=== PATIENT | male | born 1960 | race Caucasian/White ===

== ENCOUNTER 2017-07-08 22:27 | Inpatient (IN) | payer OTHER ==
[2017-07-08] VITALS (10 sets, daily range): BP systolic 166–250; BP diastolic 82–126; PULSE 73–86; RESP 24–32; TEMP 98.5; O2SAT 89–99
[~2017-07-08] VITALS: Ht 177.8 cm; Wt 107.9 kg
[2017-07-08] MEDS ORDERED: GEMF600T PO (22:48)
[2017-07-08] MEDS ORDERED: metoprolol (22:48)
--- NOTE | 2017-07-08 22:51 | PD ---
HPI Chief Complaint: Respiratory Distress Time Seen by Provider: 22:34 Travel History International Travel<30 days: No Contact w/Intl Traveler<30days: No Traveled to known affect area: No History of Present Illness HPI The patient is a 56 year old male who presents to the [facility] emergency department with a history of sudden onset of cough, shortness of breath that began when he laid down prior to arrival. The patient reports that he had similar symptoms a few months ago when he developed the flu. He reports that he was seen by his primary care physician regarding that. He reports that those symptoms seem to resolve on their own. The patient reports that the shortness of breath seem to get worse even though he sat up. He reports that he had a gurgling sound in his chest. Upon ambulance services arrival the patient was noted to have room air saturations of 88%. The patient was placed on 2 L nasal cannula O2. The patient's primary care physician is Dr. Alcala. He denies having a director custom locally, however in 2005 he did have a myocardial infarction with a stent placed in the circumflex. He reports that he has not had a stress test done that he can recall since 2011. He reports that he has been taking his medications on a regular basis. He is on low-dose aspirin daily. He denies having any prior history of congestive heart failure, DVT, or PE. On review of systems otherwise, the patient denies having any recent fevers, neck pain, chest pain, lower extremity edema, calf pain, lower extremity erythema, abdominal pain, vomiting, diarrhea, urinary symptoms, or neurologic symptoms. [facility] Past Medical History Narrative Medical The patient's past medical history is significant for myocardial infarction in 2006 status post stent placement, history of hyperlipidemia, diabetes mellitus, hypertension Diabetes: Yes Patient Takes Glucophage: No Hypertension: Yes Immunizations Current: Yes Myocardial Infarction: Yes Triglycerides - High: Yes Tetanus Vaccination: Unknown Influenza Vaccination: No Past Surgical History Narrative Surgical The patient's past surgical history is significant for tonsillectomy and uvulectomy. Coronary Stent: Yes (2005) Social History Alcohol Use: Yes ([facility]) Tobacco Use: No (Reportedly quit smoking in 2008) Substance Use: No Allergies-Medications (Allergen,Severity, Reaction): Coded Allergies: No Known Allergies (Unverified , 07/08/17) Reported Meds & Prescriptions Reported Meds & Active Scripts Active Reported Tresiba Flextouch Pen Inj (Insulin Degludec Inj) 300 unit/3 ML Pen 200 Units SQ HS Aspirin Low Dose (Aspirin) 81 Mg Chew 81 Mg PO DAILY Metformin (Metformin HCl) 500 Mg Tab 500 Mg PO BIDPC Atorvastatin (Atorvastatin Calcium) 40 Mg Tab 40 Mg PO HS Amlodipine-Benazepril 10-20 Mg Cap 1 Cap DAILY Gemfibrozil 600 Mg Tab 600 Mg PO BIDAC Take 30 minutes prior to breakfast and dinner. [metoprolol] Review of Systems Except as stated in HPI: all other systems reviewed are Neg General / Constitutional: No: Fever Eyes: No: Visual changes HENT: No: Headaches Cardiovascular: Positive: Dyspnea on exertion, No: Chest Pain or Discomfort Respiratory: Positive: Cough, Shortness of Breath, Orthopnea Gastrointestinal: No: Abdominal Pain Genitourinary: No: Dysuria Musculoskeletal: No: Pain Skin: No Rash Neurologic: No: Weakness Psychiatric: No: Depression Endocrine: No: Polydipsia Hematologic/Lymphatic: No: Easy Bruising Physical Exam Narrative General: The patient is a well-developed well-nourished male, short of breath on arrival with diaphoresis. Head and Neck exam: Head is normocephalic atraumatic. Eyes: EOMI, pupils are equal round and reactive to light. Nose: Midline septum with pink mucous membranes Mouth: Dentition unremarkable. Moist mucus membranes. Posterior oropharynx is not erythematous. No tonsillar hypertrophy. No uvula as the patient is status post uvulectomy. Airway patent. Neck: No palpable lymphadenopathy. No nuchal rigidity. No thyromegaly. Cardiovascular: Regular rate and rhythm without murmurs, gallops, or rubs. No pulse deficit to the extremities on simultaneous auscultation and palpation of his radial artery. Lungs: Crackles audible in bilateral lung bases, no wheezes, no rhonchi. The patient is tachypneic with conversational dyspnea. Abdomen: Soft, without tenderness to palpation in all 4 quadrants of the abdomen. No guarding, rebound, or rigidity. Normal bowel sounds are audible. No tenderness on palpation of McBurney's point. Extremities: No clubbing or cyanosis. The patient has trace pedal edema bilateral lower extremities. 2+ pulses in all 4 extremities. No calf tenderness on palpation. Back: No spinous process tenderness to palpation. No costovertebral angle tenderness to palpation. Neurologic Exam: Grossly nonfocal. Skin Exam: No rash noted. Intact skin that is warm and diaphoretic. Data Data Last Documented VS Vital Signs Date Time Temp Pulse Resp B/P (MAP) Pulse Ox O2 Delivery O2 Flow Rate FiO2 07/09/17 01:02 72 22 148/75 (99) 99 Nasal Cannula 3.00 07/08/17 23:43 30 07/08/17 22:36 98.5 Orders Orders Complete Blood Count With Diff (07/08/17 22:46) Comprehensive Metabolic Panel (07/08/17 22:46) B-Type Natriuretic Peptide (07/08/17 22:46) Act Partial Throm Time (Ptt) (07/08/17 22:46) Prothrombin Time / Inr (Pt) (07/08/17 22:46) Magnesium (Mg) (07/08/17 22:46) Ckmb (Isoenzyme) Profile (07/08/17 22:46) Troponin I (07/08/17 22:46) Arterial Blood Gas (Abg) (07/08/17 22:46) Urinalysis - C+S If Indicated (07/08/17 22:46) Iv Access Insert/Monitor (07/08/17 22:46) Electrocardiogram (07/08/17 22:46) Ecg Monitoring (07/08/17 22:46) Oximetry (07/08/17 22:46) Oxygen Administration (07/08/17 22:46) Chest, Single Ap (07/08/17 22:46) Urinary Catheter Insert/Apply (07/08/17 22:46) Sodium Chloride 0.9% Flush (Ns Flush) (07/08/17 23:00) Resp Bipap / Cpap Non Invas Vt (07/08/17 22:46) Nitroglycerin-D5w 50 Mg/250 Ml (Nitrogly (07/08/17 23:00) CKMB (07/08/17 22:55) CKMB% (07/08/17 22:55) Furosemide Inj (Lasix Inj) (07/09/17 00:00) Aspirin Chew (Aspirin Chew) (07/09/17 00:00) Admit Order (Ed Use Only) (07/09/17 01:08) Labs Laboratory Tests Test 4/1/18 22:55 07/08/17 23:40 07/09/17 00:45 White Blood Count 6.6 TH/MM3 Red Blood Count 5.74 MIL/MM3 Hemoglobin 15.7 GM/DL Hematocrit 47.8 % Mean Corpuscular Volume 83.2 FL Mean Corpuscular Hemoglobin 27.3 PG Mean Corpuscular Hemoglobin Concent 32.9 % Red Cell Distribution Width 15.0 % Platelet Count 173 TH/MM3 Mean Platelet Volume 9.8 FL Neutrophils (%) (Auto) 55.3 % Lymphocytes (%) (Auto) 30.2 % Monocytes (%) (Auto) 11.1 % Eosinophils (%) (Auto) 2.1 % Basophils (%) (Auto) 1.3 % Neutrophils # (Auto) 3.7 TH/MM3 Lymphocytes # (Auto) 2.0 TH/MM3 Monocytes # (Auto) 0.7 TH/MM3 Eosinophils # (Auto) 0.1 TH/MM3 Basophils # (Auto) 0.1 TH/MM3 CBC Comment DIFF FINAL Differential Comment Prothrombin Time 10.5 SEC Prothromb Time International Ratio 1.0 RATIO Activated Partial Thromboplast Time 23.4 SEC Blood Urea Nitrogen 21 MG/DL Creatinine 1.25 MG/DL Random Glucose 301 MG/DL Total Protein 6.9 GM/DL Albumin 3.4 GM/DL Calcium Level 8.6 MG/DL Magnesium Level 2.1 MG/DL Alkaline Phosphatase 108 U/L Aspartate Amino Transf (AST/SGOT) 56 U/L Alanine Aminotransferase (ALT/SGPT) 57 U/L Total Bilirubin 0.4 MG/DL Sodium Level 142 MEQ/L Potassium Level 4.1 MEQ/L Chloride Level 108 MEQ/L Carbon Dioxide Level 24.9 MEQ/L Anion Gap 9 MEQ/L Estimat Glomerular Filtration Rate 60 ML/MIN Total Creatine Kinase 111 U/L Creatine Kinase MB 2.4 NG/ML Troponin I LESS THAN 0.02 NG/ML B-Type Natriuretic Peptide 326 PG/ML Blood Gas Puncture Site RT RADIAL Blood Gas Patient Temperature 98.6 Blood Gas HCO3 24 mmol/L Blood Gas Base Excess -0.8 mmol/L Blood Gas Oxygen Saturation 93 % Arterial Blood pH 7.39 Arterial Blood Partial Pressure CO2 40 mmHg Arterial Blood Partial Pressure O2 76 mmHG Arterial Blood Oxygen Content 19.8 Vol % Arterial Blood Carboxyhemoglobin 1.3 % Arterial Blood Methemoglobin 0.8 % Blood Gas Hemoglobin 15.0 G/DL Oxygen Delivery Device BIPAP Blood Gas Ventilator Setting IPAP=10 EPAP=5 Blood Gas Inspired Oxygen 30 % Urine Color LIGHT-YELLOW Urine Turbidity CLEAR Urine pH 5.0 Urine Specific [place] 1.016 Urine Protein 30 mg/dL Urine Glucose (UA) 1000 mg/dL Urine Ketones NEG mg/dL Urine Occult Blood NEG Urine Nitrite NEG Urine Bilirubin NEG Urine Urobilinogen LESS THAN 2.0 MG/DL Urine Leukocyte Esterase NEG Urine RBC LESS THAN 1 /hpf Urine WBC 1 /hpf Microscopic Urinalysis Comment CULT NOT INDICATED MDM Medical Decision Making Medical Screen Exam Complete: Yes Emergency Medical Condition: Yes Medical Record Reviewed: Yes Interpretation(s) Last Impressions Chest X-Ray 07/08/176 Signed Impressions: Service Date/Time: Saturday, July 08, 2017 23:16 - CONCLUSION: Mild CHF Diaz Rudolph MD Differential Diagnosis Hypertensive emergency as the patient has a blood pressure on arrival of 250/126 , versus acute coronary syndrome, versus congestive heart failure exacerbation, versus pneumonia, versus pulmonary embolism Narrative Course During the course of the patient's emergency department visit, the patient's history, examination, and differential diagnosis were reviewed with the patient. The patient was placed on a child monitor with oximetry and frequent blood pressure monitoring. The patient had IV access obtained and blood work sent for analysis. The patient had an EKG done on arrival that shows a sinus rhythm heart rate of 81, QRS duration is 120 ms with a left anterior fascicular block noted, QTC is 420 ms, no acute ST segment elevation is noted. The patient was immediately placed on BiPAP due to respiratory distress. The patient was initially provided aspirin 324 mg p.o. 1. Nitroglycerin drip was started immediately to lower his afterload. The patient's laboratory studies were reviewed and remarkable for A white count of 6.6, hemoglobin 15.7, platelets 173 with 11.1 monocytes, CMP is remarkable for chloride of 108, BUN 21, glucose 301, AST 56, initial set of cardiac enzymes within normal limits, BNP elevated at 326 consistent with congestive heart failure. PT 10.5, PTT 23.4. Urinalysis shows 30 protein glucose 1000. Blood gas on BiPAP reveals a pH of 7.39, PCO2 40, PO2 76, bicarb 24. The patient's BiPAP will be weaned as tolerated. The patient's blood pressure improved on nitroglycerin drip. The goal was to get the patient's blood pressure down to a systolic of less than or equal to 180. The patient's respiratory and distress improved. The patient was diuresed with Lasix and a Farmer catheter was placed to gravity. Radiology studies were reviewed and remarkable for a chest x-ray that showed pulmonary edema consistent with congestive heart failure. The patient's results were discussed with the patient, including the plan of care. I explained that further testing and/ or monitoring is indicated based on the patient's history, examination, and/ or laboratory findings. Therefore, I recommended admission for additional evaluation. The patient expressed understanding and was agreeable with this plan. The patient was admitted to the hospital in guarded condition and sent to a bed under the care of the [facility] service. Critical Care Narrative Aggregate critical care time was 34 minutes. Time to perform other separately billable procedures was not included in the critical care time. My time did not include minutes spent treating any other patients simultaneously or on activities that did not directly contribute to the patient's treatment. The services I provided to this patient were to treat and/or prevent clinically significant deterioration that could result in: Respiratory failure requiring endotracheal intubation, versus cardiac arrhythmia, versus cardiopulmonary arrest I provided critical care services requiring my management, as noted below: Chart data review, documentation time, medication orders and management, vital sign assessments/reviewing monitor data, ordering and reviewing lab tests, ordering and interpreting/reviewing x-rays and diagnostic studies, care of the patient and discussion of the patient with the admitting physicians. Physician Communication Physician Communication The patient's case including history, pertinent physical examination findings, and laboratory studies were discussed with Dr. Foster. It was agreed that the patient would be admitted to the [facility] service. Diagnosis Primary Impression: New onset of congestive heart failure Additional Impression: Hypertensive emergency Admitting Information Admitting Physician Requests: Admit Xi Leon MD Jul 08, 2017 22:51
[2017-07-08] MEDS ORDERED: NITROGLYCERIN-D5W 50 MG/250 ML 250 ML IV PRN (23:00)
[2017-07-08] MEDS ORDERED: SODIUM CHLORIDE 0.9% FLUSH 10 ML FLUSH IVF PRN (23:00)
[2017-07-08 23:04] LABS: AUTOMATED NEUTROPHIL # 3.7 TH/MM3 (1.8-7.7); BASOPHIL # 0.1 TH/MM3 (0-0.2); BASOPHIL % 1.3 % (0.0-2.0); EOSINOPHIL # 0.1 TH/MM3 (0-0.4); EOSINOPHIL % 2.1 % (0.0-4.0); HEMATOCRIT 47.8 % (39.0-51.0); HEMOGLOBIN 15.7 GM/DL (13.0-17.0); LYMPH % 30.2 % (9.0-44.0); MEAN CELL VOLUME 83.2 FL (80.0-100.0); MEAN CORPUSCULAR HEMOGLOBIN 27.3 PG (27.0-34.0); MEAN CORPUSCULAR HGB CONC 32.9 % (32.0-36.0); MEAN PLATELET VOLUME 9.8 FL (7.0-11.0); MONO % 11.1 % (0.0-8.0); MONOCYTE # 0.7 TH/MM3 (0-0.9); NEUT % 55.3 % (16.0-70.0); PLATELET COUNT 173 TH/MM3 (150-450); RED BLOOD COUNT 5.74 MIL/MM3 (4.50-5.90); WHITE BLOOD COUNT 6.6 TH/MM3 (4.0-11.0)
[2017-07-08 23:14] LABS: PROTHROMBIN TIME - PATIENT 10.5 SEC (9.8-11.6)
--- NOTE | 2017-07-08 23:33 | RADRPT ---
EXAM DATE/TIME: 07/08/2017 23:16 [place] COMPARISON: No previous studies available for comparison. INDICATIONS : Short of breath. MEDICAL HISTORY : None. SURGICAL HISTORY : None. ENCOUNTER: Initial ACUITY: 1 day PAIN SCORE: 0/10 LOCATION: Bilateral chest FINDINGS: Cardiac silhouette is enlarged. There is mild vascular congestion and interstitial prominence. CONCLUSION: Mild CHF Diaz Rudolph MD on July 08, 2017 at 23:25 Board Certified Radiologist. This report was verified electronically.
[2017-07-08 23:50] LABS: ALBUMIN 3.4 GM/DL (3.4-5.0); ALKALINE PHOSPHATASE 108 U/L (45-117); AST (GOT) 56 U/L (15-37); BICARBONATE 24.9 MEQ/L (21.0-32.0); BLOOD UREA NITROGEN 21 MG/DL (7-18); CALCIUM 8.6 MG/DL (8.5-10.1); CHLORIDE 108 MEQ/L (98-107); CREATININE 1.25 MG/DL (0.60-1.30); GLOMERULAR FILTRATION RATE 60 ML/MIN (>89); GLUCOSE,RANDOM 301 MG/DL (74-106); MAGNESIUM 2.1 MG/DL (1.5-2.5); SODIUM (NA) 142 MEQ/L (136-145); TOTAL BILIRUBIN ADULT 0.4 MG/DL (0.2-1.0); TOTAL PROTEIN 6.9 GM/DL (6.4-8.2); TROPONIN I LESS THAN 0.02 NG/ML (0.02-0.05)
[2017-07-09] VITALS (28 sets, daily range): BP systolic 120–178; BP diastolic 72–99; PULSE 60–138; RESP 18–22; TEMP 98.1–98.7; O2SAT 94–100
[2017-07-09] MEDS ORDERED: FUROSEMIDE 100 MG/10 ML VIAL IV PUSH ONE
[2017-07-09] MEDS ORDERED: ASPIRIN 81 MG CHEW TAB CHEW ONE
[2017-07-09 00:21] LABS: ALT (GPT) 57 U/L (12-78)
[2017-07-09 01:21] LABS: BILIRUBIN, URINE NEG (NEG); BLOOD, URINE NEG (NEG); GLUCOSE,URINE 1000 mg/dL (NEG); KETONE, URINE NEG (NEG); NITRITE,URINE NEG (NEG); URINE COLOR LIGHT-YELLOW (YELLW/STRAW); URINE LEUKOCYTE ESTERASE NEG (NEG)
[2017-07-09] MEDS ORDERED: BISACODYL 10 MG SUPP RECTAL PRN (01:45)
[2017-07-09] MEDS ORDERED: NALOXONE HCL 0.4 MG/ML AMP IV PUSH PRN (01:45)
[2017-07-09] MEDS ORDERED: MAGNESIUM HYDROXIDE SUSP 30 ML CUP PO PRN (01:45)
[2017-07-09] MEDS ORDERED: LACTULOSE SYRUP 20 GM/30 ML CUP PO PRN (01:45)
[2017-07-09] MEDS ORDERED: SENNOSIDES 8.6 MG TAB PO PRN (01:45)
[2017-07-09] MEDS ORDERED: SODIUM CHLORIDE 0.9% FLUSH 10 ML FLUSH IV FLUSH PRN (01:45)
[2017-07-09] MEDS ORDERED: ONDANSETRON HCL 4 MG/2 ML VIAL IVP PRN (01:45)
[2017-07-09] MEDS ORDERED: GLUCAGON 1 MG/ML VIAL OTHER PRN ×2 (02:00→12:45)
[2017-07-09] MEDS ORDERED: DEXTROSE 50% IN WATER 50 ML VIAL(D50) IV PUSH PRN ×2 (02:00→12:45)
--- NOTE | 2017-07-09 02:03 | HHI.HP ---
HPI Service [facility] Primary Care Physician Unknown Admission Diagnosis New onset CHF, hypertensive emergency Diagnoses: Travel History International Travel<30 Days: No Contact w/Intl Traveler <30 Da: No Traveled to Known Affected Are: No History of Present Illness 56-year-old male with a past medical history significant for CAD status post [place] , hypertension, hyperlipidemia and insulin-dependent diabetes mellitus presents to the emergency department for evaluation of sudden onset shortness of breath. Patient reports he had a headache all day and was lying down after dinner this evening when he had sudden onset shortness of breath that felt as though "he couldn't get a full breath." Was called and the patient became increasingly pale and diaphoretic according to his . The patient states he did not have any chest pain or abdominal pain that accompanied his symptoms. He denies any nausea/vomiting/diarrhea. No fever/chills or cough. No lateralizing signs/symptoms. On arrival to the ED, the patient was in HTN crisis with a BP of 250/126. Review of Systems Except as stated in HPI: all other systems reviewed are Neg Past Family Social History Past Medical History Coronary artery disease status post [place] in 2005 Hypertension Hyperlipidemia Diabetes mellitus Past Surgical History Cardiac catheterization with stent 1 Tonsillectomy Reported Medications Reported Meds & Active Scripts Active Reported Gemfibrozil 600 Mg Tab 600 Mg PO BIDAC Take 30 minutes prior to breakfast and dinner. [metoprolol] Allergies: Coded Allergies: No Known Allergies (Unverified , 07/08/17) Family History Both parents with coronary artery disease and diabetes mellitus Social History Occasional alcohol. Occasional cigars. Denies illicit drugs. Physical Exam Vital Signs Vital Signs Date Time Temp Pulse Resp B/P (MAP) Pulse Ox O2 Delivery O2 Flow Rate FiO2 07/09/17 01:19 153/74 (100) 07/09/17 01:02 72 22 148/75 (99) 99 Nasal Cannula 3.00 07/09/17 00:53 22 99 Nasal Cannula 3.00 07/09/17 00:45 100 Nasal Cannula 3.00 07/09/17 00:32 73 154/76 (102) 07/09/17 00:05 74 171/87 (115) 07/08/17 23:54 73 166/82 (110) 07/08/17 23:43 24 96 BiPAP 30 07/08/17 23:41 77 176/92 (120) 07/08/17 23:35 78 184/89 (120) 07/08/17 23:26 82 198/98 (131) 07/08/17 23:18 205/107 (139) 07/08/17 23:08 95 BiPAP 07/08/17 23:07 76 213/101 07/08/17 22:55 94 Nasal Cannula 2.00 07/08/17 22:55 32 07/08/17 22:55 99 30 07/08/17 22:43 94 Nasal Cannula 2.00 07/08/17 22:36 98.5 86 32 250/126 (167) 89 Physical Exam GENERAL: Obese, male sitting up in bed SKIN: No rashes, ecchymoses or lesions. Cool and dry. HEAD: Atraumatic. Normocephalic. No temporal or scalp tenderness. EYES: Pupils equal round and reactive. Extraocular motions intact. No scleral icterus. No injection or drainage. ENT: Nose without bleeding, purulent drainage or septal hematoma. Throat without erythema, tonsillar hypertrophy or exudate. Uvula midline. Airway patent. NECK: Trachea midline. No JVD or lymphadenopathy. Supple, nontender, no meningeal signs. CARDIOVASCULAR: Regular rate and rhythm without murmurs, gallops, or rubs. RESPIRATORY: Clear to auscultation. Breath sounds equal bilaterally. No wheezes , rales, or rhonchi. GASTROINTESTINAL: Abdomen soft, non-tender, nondistended. No hepato-splenomegaly , or palpable masses. No guarding. MUSCULOSKELETAL: Extremities without clubbing, cyanosis, or edema. No joint tenderness, effusion, or edema noted. No calf tenderness. NEUROLOGICAL: Awake and alert. Cranial nerves II through XII intact. Motor and sensory grossly within normal limits. Normal speech. Laboratory Laboratory Tests Test 07/08/17 22:55 07/08/17 23:40 07/09/17 00:45 White Blood Count 6.6 Red Blood Count 5.74 Hemoglobin 15.7 Hematocrit 47.8 Mean Corpuscular Volume 83.2 Mean Corpuscular Hemoglobin 27.3 Mean Corpuscular Hemoglobin Concent 32.9 Red Cell Distribution Width 15.0 Platelet Count 173 Mean Platelet Volume 9.8 Neutrophils (%) (Auto) 55.3 Lymphocytes (%) (Auto) 30.2 Monocytes (%) (Auto) 11.1 Eosinophils (%) (Auto) 2.1 Basophils (%) (Auto) 1.3 Neutrophils # (Auto) 3.7 Lymphocytes # (Auto) 2.0 Monocytes # (Auto) 0.7 Eosinophils # (Auto) 0.1 Basophils # (Auto) 0.1 CBC Comment DIFF FINAL Differential Comment Prothrombin Time 10.5 Prothromb Time International Ratio 1.0 Activated Partial Thromboplast Time 23.4 Blood Urea Nitrogen 21 Creatinine 1.25 Random Glucose 301 Total Protein 6.9 Albumin 3.4 Calcium Level 8.6 Magnesium Level 2.1 Alkaline Phosphatase 108 Aspartate Amino Transf (AST/SGOT) 56 Alanine Aminotransferase (ALT/SGPT) 57 Total Bilirubin 0.4 Sodium Level 142 Potassium Level 4.1 Chloride Level 108 Carbon Dioxide Level 24.9 Anion Gap 9 Estimat Glomerular Filtration Rate 60 Total Creatine Kinase 111 Creatine Kinase MB 2.4 Troponin I LESS THAN 0.02 B-Type Natriuretic Peptide 326 Blood Gas Puncture Site RT RADIAL Blood Gas Patient Temperature 98.6 Blood Gas HCO3 24 Blood Gas Base Excess -0.8 Blood Gas Oxygen Saturation 93 Arterial Blood pH 7.39 Arterial Blood Partial Pressure CO2 40 Arterial Blood Partial Pressure O2 76 Arterial Blood Oxygen Content 19.8 Arterial Blood Carboxyhemoglobin 1.3 Arterial Blood Methemoglobin 0.8 Blood Gas Hemoglobin 15.0 Oxygen Delivery Device BIPAP Blood Gas Ventilator Setting IPAP=10 EPAP=5 Blood Gas Inspired Oxygen 30 Urine Color LIGHT-YELLOW Urine Turbidity CLEAR Urine pH 5.0 Urine Specific [place] 1.016 Urine Protein 30 Urine Glucose (UA) 1000 Urine Ketones NEG Urine Occult Blood NEG Urine Nitrite NEG Urine Bilirubin NEG Urine Urobilinogen LESS THAN 2.0 Urine Leukocyte Esterase NEG Urine RBC LESS THAN 1 Urine WBC 1 Microscopic Urinalysis Comment CULT NOT INDICATED Result Diagram: 07/08/17225407/08/172254 Caprini VTE Risk Assessment Caprini VTE Risk Assessment: No/Low Risk (score <= 1) Caprini Risk Assessment Model Point Value = 1 Point Value = 2 Point Value = 3 Point Value = 5 Age 41-60 Minor surgery BMI > 25 kg/m2 Swollen legs Varicose veins or History of unexplained or recurrent spontaneous Oral contraceptives or hormone replacement Sepsis (< 1 month) Serious lung disease, including pneumonia (< 1 month) Abnormal pulmonary function Acute myocardial infarction Congestive heart failure (< 1 month) History of inflammatory bowel disease Medical patient at bed rest Age 61-74 Arthroscopic surgery Major open surgery (> 45 min) Laparoscopic surgery (> 45 min) Malignancy Confined to bed (> 72 hours) Immobilizing plaster cast Central venous access Age >= 75 History of VTE Family history of VTE Factor V Leiden Prothrombin [id number] Lupus anticoagulant Anticardiolipin antibodies Elevated serum homocysteine Heparin-induced thrombocytopenia Other congenital or acquired thrombophilia Stroke (< 1 month) Elective arthroplasty Hip, pelvis, or leg fracture Acute spinal cord injury (< 1 month) Prophylaxis Regimen Total Risk Factor Score Risk Level Prophylaxis Regimen 0-1 Low Early ambulation 2 Moderate Order ONE of the following: *Sequential Compression Device (SCD) *Heparin 5000 units SQ BID 3-4 Higher Order ONE of the following medications: *Heparin 5000 units SQ TID *Enoxaparin/Lovenox 40 mg SQ daily (WT < 150 kg, CrCl > 30 mL/min) *Enoxaparin/Lovenox 30 mg SQ daily (WT < 150 kg, CrCl > 10-29 mL/min) *Enoxaparin/Lovenox 30 mg SQ BID (WT < 150 kg, CrCl > 30 mL/min) AND/OR *Sequential Compression Device (SCD) 5 or more Highest Order ONE of the following medications: *Heparin 5000 units SQ TID (Preferred with Epidurals) *Enoxaparin/Lovenox 40 mg SQ daily (WT < 150 kg, CrCl > 30 mL/min) *Enoxaparin/Lovenox 30 mg SQ daily (WT < 150 kg, CrCl > 10-29 mL/min) *Enoxaparin/Lovenox 30 mg SQ BID (WT < 150 kg, CrCl > 30 mL/min) AND *Sequential Compression Device (SCD) Assessment and Plan Assessment and Plan Assessment/plan: 1. Hypertensive crisis Blood pressure on arrival to the emergency department was 250/126 Continue nitro drip - wean as tolerated Resume home antihypertensives once medication list reconciled 2. Shortness of breath Unclear etiology Chest x-ray significant for mild vascular congestion with cardiomegaly, personally reviewed BMP mildly elevated at 326 Patient with no known history of CHF Echo pending IV Lasix Supplemental oxygen as needed 3. 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 Diabetes mellitus Continue long-acting insulin once reconciled Sliding scale insulin Monitor blood glucose 5. Hypertension/hyperlipidemia Continue home medications FEN Heart healthy, diabetic diet Electrolytes: Monitor and replete when necessary Heparin Physician Certification 2 Midnight Certification Type: Admission for Inpatient Services Order for Inpatient Services The services are ordered in accordance with Medicare regulations or non- Medicare payer requirements, as applicable. In the case of services not specified as inpatient-only, they are appropriately provided as inpatient services in accordance with the 2-midnight benchmark. Estimated LOS (days): 2 2 days is the estimated time the patient will need to remain in the hospital, assuming treatment plan goals are met and no additional complications. Post-Hospital Plan: Not yet determined Sarah Foster MD Jul 09, 2017 02:03
[2017-07-09] MEDS: HEPARIN SODIUM - SQ 10,000 UNITS/ML VIAL SQ SCH ×3 (02:32→17:12)
[2017-07-09] MEDS: ACETAMINOPHEN 325 MG TAB PO PRN ×3 (03:03→11:45)
[2017-07-09 05:43] LABS: TROPONIN I LESS THAN 0.02 NG/ML (0.02-0.05)
[2017-07-09] MEDS ORDERED: MORPHINE SULFATE 2 MG/ML SYRINGE IV PUSH PRN (06:00)
[2017-07-09] MEDS ORDERED: MORPHINE SULFATE 4 MG/ML INJ IV PUSH PRN (06:00)
[2017-07-09] MEDS ORDERED: INSULIN ASPART SUPPLEMENTAL SCALE SQ SCH (08:00)
--- NOTE | 2017-07-09 08:20 | EKG ---
Date Performed: 07/09/2017 Time Performed: 04:55:32 PTAGE: 56 years EKG: Sinus rhythm Left axis deviation IV conduction defect Extensive T wave changes Abnormal ECG PREVIOUS TRACING : 07/08/2017 22.51 Compared to previous tracing, T wave changes now present DOCTOR: Mesha Abdalla Interpretating Date/Time 07/09/2017 08:19:50
--- NOTE | 2017-07-09 08:25 | EKG ---
Date Performed: 07/08/2017 Time Performed: 22:51:24 PTAGE: 56 years EKG: Sinus rhythm POSSIBLE LEFT ATRIAL ENLARGEMENT LEFT ANTERIOR FASCICULAR BLOCK NONSPECIFIC T-WAVE ABNORMALITY ABNOR MAL ECG PREVIOUS TRACING : 07/08/2017 22.35 DOCTOR: Mesha Abdalla Interpretating Date/Time 07/09/2017 08:25:07
[2017-07-09] MEDS: DOCUSATE SODIUM 50 MG/SENNA 8.6 MG TAB PO SCH ×2 (08:28→21:00)
[2017-07-09] MEDS: FUROSEMIDE 40 MG/4 ML VIAL IV PUSH SCH ×2 (08:28→17:13)
[2017-07-09] MEDS: SODIUM CHLORIDE 0.9% FLUSH 10 ML FLUSH IV FLUSH SCH ×2 (08:28→21:39)
[2017-07-09] MEDS: LISINOPRIL 10 MG TAB PO SCH (10:02)
[2017-07-09] MEDS: amLODIPine BESYLATE 5 MG TAB PO SCH (10:03)
[2017-07-09 12:36] LABS: TROPONIN I LESS THAN 0.02 NG/ML (0.02-0.05)
[2017-07-09] MEDS ORDERED: PLEASE DISCONTINUE PREVIOUS SUPPLEMENTAL SCALE INSULIN ORDERS ONE (12:45)
[2017-07-09] MEDS: MEDIUM DOSE INSULIN NOVOLOG SUPPLEMENTAL SCALE SQ SCH ×3 (13:10→22:29)
--- NOTE | 2017-07-09 13:21 | HHI.PR ---
Subjective Remarks Patient reports feeling extremely tired. He denies chest pain or shortness of breath. He reports compliance with his antihypertensives. He did say he ran out of Lotrel a couple of weeks ago but has been taking metoprolol and Norvasc. Objective Vitals Vital Signs Date Time Temp Pulse Resp B/P (MAP) Pulse Ox O2 Delivery O2 Flow Rate FiO2 07/09/17 12:00 98.6 67 18 140/93 (109) 94 07/09/17 10:47 83 155/91 07/09/17 10:04 79 165/89 07/09/17 09:00 167/88 07/09/17 08:30 98.5 75 18 178/99 (125) 94 07/09/17 08:00 164/96 07/09/17 07:00 178/93 07/09/17 06:10 63 163/101 07/09/17 05:35 66 170/88 07/09/17 04:08 98.7 70 20 169/91 (117) 96 07/09/17 03:50 169/91 07/09/17 03:40 81 07/09/17 03:40 177/101 07/09/17 03:19 72 20 171/85 (113) 97 Nasal Cannula 3.00 07/09/17 03:18 07/09/17 02:20 75 20 152/74 (100) 97 Nasal Cannula 3.00 07/09/17 01:45 76 146/72 (96) 07/09/17 01:19 153/74 (100) 07/09/17 01:02 72 22 148/75 (99) 99 Nasal Cannula 3.00 07/09/17 00:53 22 99 Nasal Cannula 3.00 07/09/17 00:45 100 Nasal Cannula 3.00 07/09/17 00:32 73 154/76 (102) 07/09/17 00:05 74 171/87 (115) 07/08/17 23:54 73 166/82 (110) 07/08/17 23:43 24 96 BiPAP 30 07/08/17 23:41 77 176/92 (120) 07/08/17 23:35 78 184/89 (120) 07/08/17 23:26 82 198/98 (131) 07/08/17 23:18 205/107 (139) 07/08/17 23:08 95 BiPAP 07/08/17 23:07 76 213/101 07/08/17 22:55 94 Nasal Cannula 2.00 07/08/17 22:55 94 Nasal Cannula 2.00 07/08/17 22:55 32 07/08/17 22:55 99 30 07/08/17 22:43 94 Nasal Cannula 2.00 07/08/17 22:36 98.5 86 32 250/126 (167) 89 I/O 07/08/17 07/08/17 07/08/17 07/09/17 07/09/17 07/09/17 07:00 15:00 23:00 07:00 15:00 23:00 Intake Total 240 ml Output Total 3925 ml Balance -3685 ml Intake Oral 240 ml Output Urine Total 3925 ml # Bowel Movements 0 Result Diagram: 07/08/17225407/08/172254 Objective Remarks GENERAL: This is a well-nourished, well-developed patient, in no apparent distress. CARDIOVASCULAR: Normal rate and regular rhythm without murmurs, gallops, or rubs. RESPIRATORY: Good respiratory efforts. Breath sounds equal and clear to auscultation bilaterally. GASTROINTESTINAL: Abdomen soft, non-tender, non-distended. Normal active bowel sounds MUSCULOSKELETAL: Extremities without cyanosis, or edema. NEURO: Alert & Oriented x4 to person, place, time, situation. Moves all ext x4 PSYCH: Appropriate mood and affect. A/P Assessment and Plan 56-year-old male admitted with: 1. Hypertensive emergency Blood pressure on arrival to the emergency department was 250/126. Chest x-ray with evidence of CHF. Continue nitro drip - wean as tolerated Start amlodipine, lisinopril. Wean off nitro drip as tolerated. 2. Shortness of breath secondary to above. Chest x-ray significant for mild vascular congestion with cardiomegaly, personally reviewed BMP mildly elevated at 326 Patient with no known history of CHF Echo pending Continue IV Lasix Supplemental oxygen as needed 3. 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 Diabetes mellitus Sliding scale insulin. Plan to resume long-acting Monitor blood glucose Adam Stanton MD Jul 09, 2017 13:21
[2017-07-09] MEDS ORDERED: ASPI81CH6 PO (13:25)
[2017-07-09] MEDS ORDERED: ATOR40TA16 PO (13:25)
[2017-07-09] MEDS ORDERED: METF500T PO (13:25)
[2017-07-09] MEDS ORDERED: ASPI-516 PO (13:25)
[2017-07-09] MEDS ORDERED: AMLO10CA (13:25)
[2017-07-09] MEDS ORDERED: INSU1INJ14 SQ (13:27)
[2017-07-09] MEDS ORDERED: METOPROLOL TARTRATE 25 MG TAB PO SCH (14:00)
[2017-07-09] MEDS ORDERED: METOPROLOL TARTRATE 5 MG/5 ML VIAL IV ONE (14:00)
[2017-07-09] MEDS ORDERED: METOPROLOL TARTRATE 5 MG/5 ML VIAL IV PUSH ONE (15:00)
[2017-07-09] MEDS: METOPROLOL TARTRATE 25 MG TAB PO SCH (21:39)
[2017-07-10] VITALS (13 sets, daily range): BP systolic 123–142; BP diastolic 81–88; PULSE 63–122; RESP 16–18; TEMP 97.5–98.5; O2SAT 95–97
[2017-07-10] MEDS: HEPARIN SODIUM - SQ 10,000 UNITS/ML VIAL SQ SCH ×2 (03:30→09:36)
[2017-07-10 06:52] LABS: AUTOMATED NEUTROPHIL # 4.9 TH/MM3 (1.8-7.7); BASOPHIL # 0.1 TH/MM3 (0-0.2); BASOPHIL % 1.1 % (0.0-2.0); EOSINOPHIL # 0.1 TH/MM3 (0-0.4); EOSINOPHIL % 1.7 % (0.0-4.0); HEMATOCRIT 49.9 % (39.0-51.0); HEMOGLOBIN 16.9 GM/DL (13.0-17.0); LYMPHOCYTE # 2.6 TH/MM3 (1.0-4.8); MEAN CELL VOLUME 82.1 FL (80.0-100.0); MEAN CORPUSCULAR HEMOGLOBIN 27.7 PG (27.0-34.0); MEAN CORPUSCULAR HGB CONC 33.8 % (32.0-36.0); MEAN PLATELET VOLUME 9.6 FL (7.0-11.0); MONO % 11.6 % (0.0-8.0); NEUT % 55.6 % (16.0-70.0); PLATELET COUNT 193 TH/MM3 (150-450); RED BLOOD COUNT 6.08 MIL/MM3 (4.50-5.90); RED CELL DISTRIBUTION WIDTH 14.9 % (11.6-17.2); WHITE BLOOD COUNT 8.8 TH/MM3 (4.0-11.0)
[2017-07-10 07:16] LABS: BICARBONATE 28.8 MEQ/L (21.0-32.0); CALCIUM 9.1 MG/DL (8.5-10.1); CREATININE 1.02 MG/DL (0.60-1.30)
--- NOTE | 2017-07-10 08:05 | MB ---
cc: Mesha Abdalla MD DATE: 07/09/2017 HISTORY OF PRESENT ILLNESS: Mr. Winters is a 56-year-old white male with a history of coronary artery disease, myocardial infarction in 2005, hypertension, dyslipidemia and diabetes mellitus. He developed shortness of breath and headache. After he laid down after dinner, he developed severe shortness of breath, became diaphoretic and pale. He did not have any chest pain or abdominal pain, nausea, or vomiting. He was brought to the emergency room, his blood pressure was 250/126. His blood pressure is now better controlled. He went into atrial fibrillation this morning with increased ventricular response. He has no previous history of atrial fibrillation. PAST MEDICAL HISTORY: Positive for coronary artery disease, myocardial infarction in 2005, hypertension, dyslipidemia, diabetes mellitus, cardiac catheterization and stent placement, tonsillectomy. No history of stroke. MEDICATIONS: Gemfibrozil. MEDICATIONS AT HOME: Include, gemfibrozil, atorvastatin, amlodipine, benazepril, aspirin, metformin, insulin, metoprolol. ALLERGIES: NONE. SOCIAL HISTORY: The patient does not smoke cigarettes. He smokes cigars occasionally. He drinks alcohol occasionally. He does not control his salt intake. He exercises 2-3 times a week. FAMILY HISTORY: Positive for heart disease. His father of myocardial infarction. REVIEW OF SYSTEMS: Otherwise negative. PHYSICAL EXAMINATION: VITAL SIGNS: Blood pressure 125/76, pulse 125 and irregular. HEENT: Negative 2+ carotid upstrokes, no bruits. LUNGS: Clear. HEART: Irregularly irregular, with no murmur or gallop. ABDOMEN: Soft. No bruits. EXTREMITIES: With mild edema, 1-2+ pulses. NEUROLOGIC: Grossly nonfocal. ECHOCARDIOGRAM: Was reviewed and showed normal sinus rhythm, left axis, left anterior fascicular block, nonspecific T-wave changes. Followup EKG showed atrial fibrillation with rapid ventricular response, left axis and left anterior fascicular block and nonspecific T-wave changes. LABORATORY DATA: Hemoglobin 15.7, potassium 4.1, creatinine 1.5. Troponin negative x 3. CK 111, 81 and 78, AST 56, ALT 57. BNP 326. DIAGNOSES: 1. Hypertensive emergency. 2. Paroxysmal atrial fibrillation with rapid ventricular response. 3. Coronary artery disease, history of myocardial infarction. 4. Diabetes mellitus. 5. Dyslipidemia. 6. Obesity. DISPOSITION: Mr. Winters will continue his current program. We will continue and titrate his antihypertensive medications. I recommend to increase metoprolol for blood pressure control and rate control. I recommend to start anticoagulation with a novel anticoagulant. He was counseled on low salt diet. He will be monitored on telemetry. I will follow him for cardiology during his hospitalization. I will also see him back for followup in our office after discharge. MD SY Ortega/FAM , 06:05 PM , 07:03 PM IVON
[2017-07-10] MEDS ORDERED: POTASSIUM CHLORIDE 10 MEQ CONTROLLED RELEASE TAB PO ONE (09:00)
[2017-07-10] MEDS: DOCUSATE SODIUM 50 MG/SENNA 8.6 MG TAB PO SCH (09:00)
[2017-07-10] MEDS: MEDIUM DOSE INSULIN NOVOLOG SUPPLEMENTAL SCALE SQ SCH ×2 (09:34→13:30)
[2017-07-10] MEDS: amLODIPine BESYLATE 5 MG TAB PO SCH (09:34)
[2017-07-10] MEDS: LISINOPRIL 10 MG TAB PO SCH (09:35)
[2017-07-10] MEDS: METOPROLOL TARTRATE 25 MG TAB PO SCH (09:36)
[2017-07-10] MEDS: SODIUM CHLORIDE 0.9% FLUSH 10 ML FLUSH IV FLUSH SCH (09:36)
[2017-07-10] MEDS: FUROSEMIDE 40 MG/4 ML VIAL IV PUSH SCH (09:37)
--- NOTE | 2017-07-10 11:43 | HHI.PR ---
Objective Vitals Vital Signs Date Time Temp Pulse Resp B/P (MAP) Pulse Ox O2 Delivery O2 Flow Rate FiO2 07/10/17 10:00 110 07/10/17 09:15 95 21 07/10/17 09:00 110 07/10/17 08:08 98.1 75 16 142/87 (105) 97 07/10/17 08:00 96 07/10/17 08:00 92 07/10/17 04:00 97.9 67 18 123/88 (100) 96 07/10/17 02:00 94 07/10/17 01:00 84 07/10/17 00:00 97.5 63 18 133/81 (98) 96 07/10/17 00:00 106 07/09/17 23:00 110 07/09/17 22:00 132 07/09/17 21:28 96 Nasal Cannula 1.00 07/09/17 21:00 110 07/09/17 20:00 108 07/09/17 20:00 98.1 95 21 120/76 (91) 94 07/09/17 17:00 108 07/09/17 16:34 121 07/09/17 15:00 124 07/09/17 14:54 130 125/76 07/09/17 14:00 130 07/09/17 13:00 130 07/09/17 12:45 18 07/09/17 12:00 138 07/09/17 12:00 98.6 67 18 140/93 (109) 94 07/09/17 11:45 141/94 I/O 07/09/17 07/09/17 07/09/17 07/10/17 07/10/17 07/10/17 07:00 15:00 23:00 07:00 15:00 23:00 Intake Total 240 ml 1000 ml 240 ml Output Total 3925 ml 2100 ml 1150 ml Balance -3685 ml -1100 ml -910 ml Intake Oral 240 ml 1000 ml 240 ml Output Urine Total 3925 ml 2100 ml 1150 ml # Voids 5 # Bowel Movements 0 1 Result Diagram: 07/10/17 0533 07/10/17 0533 Objective Remarks GENERAL: This is a well-nourished, well-developed patient, in no apparent distress. CARDIOVASCULAR: Normal rate and regular rhythm without murmurs, gallops, or rubs. RESPIRATORY: Good respiratory efforts. Breath sounds equal and clear to auscultation bilaterally. GASTROINTESTINAL: Abdomen soft, non-tender, non-distended. Normal active bowel sounds MUSCULOSKELETAL: Extremities without cyanosis, or edema. NEURO: Alert & Oriented x4 to person, place, time, situation. Moves all ext x4 PSYCH: Appropriate mood and affect. A/P Assessment and Plan 56-year-old male admitted with: 1. Hypertensive emergency Blood pressure on arrival to the emergency department was 250/126. Chest x-ray with evidence of CHF. Continue nitro drip - wean as tolerated Start amlodipine, lisinopril. Wean off nitro drip as tolerated. 2. Shortness of breath secondary to above. Chest x-ray significant for mild vascular congestion with cardiomegaly, personally reviewed BMP mildly elevated at 326 Patient with no known history of CHF Echo pending Continue IV Lasix Supplemental oxygen as needed 3. 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 Diabetes mellitus Sliding scale insulin. Plan to resume long-acting Monitor blood glucose Adam Stanton MD Jul 10, 2017 11:43
[2017-07-10] MEDS ORDERED: AMLO10CA PO (12:17)
[2017-07-10] MEDS ORDERED: FURO40TA PO (12:17)
[2017-07-10] MEDS ORDERED: METO50TA PO (12:17)
--- NOTE | 2017-07-10 12:18 | HHI.DCPOC ---
Discharge Care Plan Diagnosis: (1) Hypertensive emergency (2) Atrial fibrillation (3) Shortness of breath (4) Diabetes Goals to Promote Your Health * To prevent worsening of your condition and complications * To maintain your health at the optimal level Directions to Meet Your Goals Take your medications as prescribed Follow your dietary instruction Follow activity as directed Keep your appointments as scheduled Take your immunizations and boosters as scheduled If your symptoms worsen call your PCP, if no PCP go to Urgent Care Center or Emergency Room Smoking is Dangerous to Your Health. Avoid second hand smoke Call the 24-hour hour crisis hotline for domestic abuse at Adam Stanton MD Jul 10, 2017 12:18
--- NOTE | 2017-07-10 12:19 | HHI.DS ---
Discharge Summary Admission Date Jul 09, 2017 at 01:10 Admitting Diagnosis New onset CHF, hypertensive emergency Brief History - From Admission 56-year-old male with a past medical history significant for CAD status post NV , hypertension, hyperlipidemia and insulin-dependent diabetes mellitus presents to the emergency department for evaluation of sudden onset shortness of breath. Patient reports he had a headache all day and was lying down after dinner this evening when he had sudden onset shortness of breath that felt as though "he couldn't get a full breath." Was called and the patient became increasingly pale and diaphoretic according to his . The patient states he did not have any chest pain or abdominal pain that accompanied his symptoms. He denies any nausea/vomiting/diarrhea. No fever/chills or cough. No lateralizing signs/symptoms. On arrival to the ED, the patient was in HTN crisis with a BP of 250/126. CBC/BMP: 07/10/17 0533 07/10/17 0533 Significant Findings Laboratory Tests Test 07/08/17 22:55 07/08/17 23:40 07/09/17 00:45 07/09/17 04:50 Monocytes (%) (Auto) 11.1 % (0.0-8.0) Activated Partial Thromboplast Time 23.4 SEC (24.3-30.1) Blood Urea Nitrogen 21 MG/DL (7-18) Random Glucose 301 MG/DL (74-106) Aspartate Amino Transf (AST/SGOT) 56 U/L (15-37) Chloride Level 108 MEQ/L (98-107) Estimat Glomerular Filtration Rate 60 ML/MIN (>89) Troponin I LESS THAN 0.02 NG/ML LESS THAN 0.02 NG/ML B-Type Natriuretic Peptide 326 PG/ML (0-100) Urine Protein 30 mg/dL (NEG-TRACE) Urine Glucose (UA) 1000 mg/dL (NEG) Test 07/09/17 11:24 07/10/17 05:33 Troponin I LESS THAN 0.02 NG/ML Red Blood Count 6.08 MIL/MM3 (4.50-5.90) Monocytes (%) (Auto) 11.6 % (0.0-8.0) Monocytes # (Auto) 1.0 TH/MM3 (0-0.9) Random Glucose 220 MG/DL (74-106) Potassium Level 3.1 MEQ/L (3.5-5.1) Estimat Glomerular Filtration Rate 76 ML/MIN (>89) PE at Discharge GENERAL: This is a well-nourished, well-developed patient, in no apparent distress. CARDIOVASCULAR: Normal rate and regular rhythm without murmurs, gallops, or rubs. RESPIRATORY: Good respiratory efforts. Breath sounds equal and clear to auscultation bilaterally. GASTROINTESTINAL: Abdomen soft, non-tender, non-distended. Normal active bowel sounds MUSCULOSKELETAL: Extremities without cyanosis, or edema. NEURO: Alert & Oriented x4 to person, place, time, situation. Moves all ext x4 PSYCH: Appropriate mood and affect. Pt Condition on Discharge: Good Discharge Disposition: Discharge Home Discharge Instructions DIET: Follow Instructions for: Heart Healthy Diet Activities you can perform: Regular-No Restrictions Adam Stanton MD Jul 10, 2017 12:19
--- NOTE | 2017-07-10 15:36 | EKG ---
Date Performed: 07/09/2017 Time Performed: 12:36:28 PTAGE: 56 years EKG: Atrial fibrillation with rapid ventricular response. Left axis deviation IV conduction defe ct Inferior infarct - age undetermined Ant/septal and lateral T wave changes are nonspecific Abnormal ECG PREVIOUS TRACING 07/09/17 Atiral fibrillation is new since prior tracing. Clinical correlation i s recommended DOCTOR: Carlos Barrera Interpretating Date/Time 07/10/2017 15:35:29
--- NOTE | 2017-07-10 16:49 | EKG ---
Date Performed: 07/09/2017 Time Performed: 11:10:08 PTAGE: 56 years EKG: Sinus rhythm . Left axis deviation IV conduction defect Extensive T wave changes may be due to myocardial ischemia Since previous tracing, no significant change noted Abnormal ECG PREVIOUS TRACING : 07/09/2017 04.55 DOCTOR: Carlos Barrera Interpretating Date/Time 07/10/2017 16:45:55
--- NOTE | 2017-07-10 17:28 | ECHRPT ---
Indication: HEART FAILURE CONCLUSIONS The left ventricular systolic function is mildly reduced with an estimated ejection fraction in the range of 45- 50%. Mild concentric left ventricular hypertrophy. The right ventricular systoilc function is mildly decreased. Trace mitral valve regurgitation. BP: 125 / 76 HR: 130 Rhythm: Sinus MEASUREMENTS (Male / Female) Normal Values Technical Quality:Fair 2D ECHO LV Diastolic Diameter PLAX 5.3 cm 4.2 - 5.9 / 3.9 - 5.3 cm LV Systolic Diameter PLAX 4.0 cm IVS Diastolic Thickness 1.3 cm 0.6 - 1.0 / 0.6 - 0.9 cm LVPW Diastolic Thickness 1.3 cm 0.6 - 1.0 / 0.6 - 0.9 cm LV Relative Wall Thickness 0.5 RV Internal Dim ED PLAX 3.4 cm LVOT Diameter 1.7 cm LA Systolic Diameter LX 4.1 cm 3.0 - 4.0 / 2.7 - 3.8 cm LV Ejection Fraction MOD 4C 50.8 % LV Cardiac Index MOD 4C 3324.8 cm/minm LV Ejection Fraction 4C AL 53.5 % LV Cardiac Index 4C AL 3657.3 cm/minm M-MODE LV Diastolic Diameter MM 5.2 cm 4.2 - 5.9 / 3.9 - 5.3 cm LV Systolic Diameter MM 4.0 cm LV Ejection Fraction MM Teich 47.2 % LV Cardiac Index MM Teich 3449.0 cm/minm IVS Diastolic Thickness MM 1.5 cm 0.6 - 1.0 / 0.6 - 0.9 cm LVPW Diastolic Thickness MM 1.5 cm 0.6 - 1.0 / 0.6 - 0.9 cm LV Relative Wall Thickness MM 0.6 0.24 - 0.42 / 0.22 - 0.42 LV Mass Index MM 147.1 g/m 49 - 115 / 43 - 95 g/m Aortic Root Diameter MM 2.5 cm LA Systolic Diameter MM 3.9 cm LA Ao Ratio MM 1.6 AV Cusp Separation MM 1.8 cm DOPPLER AV Peak Velocity 155.0 cm/s AV Peak Gradient 9.6 mmHg LVOT Peak Velocity 89.3 cm/s LVOT Peak Gradient 3.2 mmHg AV Area Cont Eq pk 1.3 cm LV E' Lateral Velocity 6.3 cm/s LV E' Septal Velocity 5.6 cm/s PV Peak Velocity 76.0 cm/s PV Peak Gradient 2.3 mmHg FINDINGS LEFT VENTRICLE The left ventricular systolic function is mildly reduced with an estimated ejection fraction in the range of 45- 50%. There was limited left ventricular wall motion assessment due to poor endocardial visualization. Normal left ventricular size. Mild concentric left ventricular hypertrophy. There is global left ventricular dysfunction. RIGHT VENTRICLE The right ventricular size is normal. The right ventricular systoilc function is mildly decreased. LEFT ATRIUM The left atrial size is mildly dilated. RIGHT ATRIUM The right atrial size is normal. ATRIAL SEPTUM Normal atrial septal thickness AORTA The aortic root and proximal ascending aorta are normal in size on limited imaging. MITRAL VALVE Structurally normal mitral valve. Trace mitral valve regurgitation. No mitral valve stenosis. AORTIC VALVE Trileaflet aortic valve. No aortic valve stenosis or regurgitation. TRICUSPID VALVE Structurally normal tricuspid valve. No tricuspid valve stenosis or regurgitation. PULMONARY VALVE The pulmonary valve is not well visualized. VESSELS The inferior vena cava is normal in size. PERICARDIUM No pericardial effusion. Ronnie Yang DO (Electronically Signed) Final Date:10 July 2017 17:27
--- NOTE | 2017-07-10 17:54 | PD.CARD.PN ---
Subjective Subjective Remarks No CP or SOB, feels better Objective Vital Signs / I&O Vital Signs Date Time Temp Pulse Resp B/P (MAP) Pulse Ox O2 Delivery O2 Flow Rate FiO2 07/10/17 13:00 99 07/10/17 12:00 102 07/10/17 11:30 98.5 86 18 136/87 (103) 96 07/10/17 11:00 122 07/10/17 10:00 110 07/10/17 09:15 95 21 07/10/17 09:00 110 07/10/17 08:08 98.1 75 16 142/87 (105) 97 07/10/17 08:00 96 07/10/17 08:00 92 07/10/17 04:00 97.9 67 18 123/88 (100) 96 07/10/17 02:00 94 07/10/17 01:00 84 07/10/17 00:00 97.5 63 18 133/81 (98) 96 07/10/17 00:00 106 07/09/17 23:00 110 07/09/17 22:00 132 07/09/17 21:28 96 Nasal Cannula 1.00 07/09/17 21:00 110 07/09/17 20:00 108 07/09/17 20:00 98.1 95 21 120/76 (91) 94 I/O 07/09/17 07/09/17 07/09/17 07/10/17 07/10/17 07/10/17 07:00 15:00 23:00 07:00 15:00 23:00 Intake Total 240 ml 1000 ml 240 ml Output Total 3925 ml 2100 ml 1150 ml Balance -3685 ml -1100 ml -910 ml Intake Oral 240 ml 1000 ml 240 ml Output Urine Total 3925 ml 2100 ml 1150 ml # Voids 5 # Bowel Movements 0 1 Physical Exam GENERAL: In NAD. SKIN: Warm and dry. HEAD: Normocephalic. EYES: No scleral icterus. No injection or drainage. NECK: Supple, trachea midline. No JVD or lymphadenopathy. CARDIOVASCULAR: Irregular rate and rhythm, without murmurs, gallops, or rubs. RESPIRATORY: Breath sounds equal bilaterally. No accessory muscle use. GASTROINTESTINAL: Abdomen soft, non-tender, nondistended. MUSCULOSKELETAL: No cyanosis, or edema. Laboratory Laboratory Tests Test 07/10/17 05:33 White Blood Count 8.8 TH/MM3 Red Blood Count 6.08 MIL/MM3 Hemoglobin 16.9 GM/DL Hematocrit 49.9 % Mean Corpuscular Volume 82.1 FL Mean Corpuscular Hemoglobin 27.7 PG Mean Corpuscular Hemoglobin Concent 33.8 % Red Cell Distribution Width 14.9 % Platelet Count 193 TH/MM3 Mean Platelet Volume 9.6 FL Neutrophils (%) (Auto) 55.6 % Lymphocytes (%) (Auto) 30.0 % Monocytes (%) (Auto) 11.6 % Eosinophils (%) (Auto) 1.7 % Basophils (%) (Auto) 1.1 % Neutrophils # (Auto) 4.9 TH/MM3 Lymphocytes # (Auto) 2.6 TH/MM3 Monocytes # (Auto) 1.0 TH/MM3 Eosinophils # (Auto) 0.1 TH/MM3 Basophils # (Auto) 0.1 TH/MM3 CBC Comment DIFF FINAL Differential Comment Blood Urea Nitrogen 17 MG/DL Creatinine 1.02 MG/DL Random Glucose 220 MG/DL Calcium Level 9.1 MG/DL Sodium Level 140 MEQ/L Potassium Level 3.1 MEQ/L Chloride Level 100 MEQ/L Carbon Dioxide Level 28.8 MEQ/L Anion Gap 11 MEQ/L Estimat Glomerular Filtration Rate 76 ML/MIN Assessment and Plan Problem List: (1) Hypertensive emergency ICD Codes: I16.1 - Hypertensive emergency (2) Atrial fibrillation ICD Codes: I48.91 - Unspecified atrial fibrillation (3) CAD (coronary artery disease) ICD Codes: I25.10 - Atherosclerotic heart disease of [place] coronary artery without angina pectoris (4) Diabetes ICD Codes: E11.9 - Type 2 diabetes mellitus without complications Assessment and Plan No angina or CHF. BP better controlled. Tele w AF. Continue tx for CAD including aggressive risk factor modification. A fib rate control. Will schedule outpt f/u in our office. Mesha Abdalla MD Jul 10, 2017 17:54
== END 2017-07-10 14:24 | disposition home or self-care (01) | DRG 305 ==
LOC: NEPE 22:27 → NEDA 07-09 01:10 → HCIS 07-09 03:30
PROVIDERS: ADMIT Family Medicine; ATTEND Family Medicine
PROC: 5A09357 Assistance with Respiratory Ventilation, Less than 24 Consecutive Hours, Continuous Positive Airway Pressure (ICD-10-PCS; principal; 2017-07-08)
DX: I16.1 Hypertensive emergency (principal); J81.1 Chronic pulmonary edema; I10 Essential (primary) hypertension; I48.0 Paroxysmal atrial fibrillation; E11.9 Type 2 diabetes mellitus without complications; E78.5 Hyperlipidemia, unspecified; I25.2 Old myocardial infarction; I25.10 Atherosclerotic heart disease of native coronary artery without angina pectoris; R06.03 Acute respiratory distress; I44.4 Left anterior fascicular block; E66.9 Obesity, unspecified; Z68.34 Body mass index [BMI] 34.0-34.9, adult; Z72.0 Tobacco use; Z79.4 Long term (current) use of insulin; Z82.49 Family history of ischemic heart disease and other diseases of the circulatory system; Z83.3 Family history of diabetes mellitus; Z95.5 Presence of coronary angioplasty implant and graft
CPT/HCPCS: 36600; 71045; 80048; 80053; 81001; 82550; 82552; 82805; 82948; 83735; 83880; 84484; 85025; 85610; 85730; 93005; 93306; 94002; 96374; 99291; J1644; J1815; J1940; J2270